=== PATIENT | male | born 1995 | race Two or more races ===

== ENCOUNTER 2019-05-11 09:53 | Emergency (ER) | payer OTHER ==
[~2019-05-11] VITALS: Ht 172.7 cm; Wt 106.1 kg
[~2019-05-11 09:53] MED LIST: IBUP-1953 PO; IBUP100O19 PO
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
--- NOTE | 2019-05-11 10:16 | NUR ---
PT SEEN AND EXAMINED BY .
--- NOTE | 2019-05-11 10:20 | NUR ---
[employer] AT BEDSIDE FOR XRAY.
[2019-05-11] MEDS ORDERED: IBUPROFEN 400 MG TABLET ONE (10:23)
[2019-05-11] MEDS ORDERED: IBUPROFEN 400 MG TABLET PO ONE (10:30)
--- NOTE | 2019-05-11 11:10 | NUR ---
PT IS WHEELED TO CT SCAN VIA [facility].
[2019-05-11 12:03] VITALS: BP 133/72
--- NOTE | 2019-05-11 12:03 | NUR ---
Patient discharged to home in stable condition. Written and verbal after care instructions given. Patient verbalizes understanding of instruction.
== END 2019-05-11 12:04 | disposition home or self-care (01) ==
LOC: ER 09:59
DX: S16.1XXA Strain of muscle, fascia and tendon at neck level, initial encounter (principal); S80.12XA Contusion of left lower leg, initial encounter; S00.81XA Abrasion of other part of head, initial encounter; R51 Headache; F17.200 Nicotine dependence, unspecified, uncomplicated; F12.10 Cannabis abuse, uncomplicated; V49.49XA Driver injured in collision with other motor vehicles in traffic accident, initial encounter; Y93.89 Activity, other specified; Y92.488 Other paved roadways as the place of occurrence of the external cause; Y99.9 Unspecified external cause status
CPT/HCPCS: 70450-TC; 72040-TC; 73552

== ENCOUNTER 2025-01-17 18:10 | Emergency (ER) | payer SELFPAY ==
[~2025-01-17] VITALS: Ht 175.3 cm; Wt 99.8 kg
[~2025-01-17 18:10] MED LIST changes: +IBUP-2383 PO; -IBUP100O19 PO
[2025-01-17 18:40] VITALS: BP 141/86; TEMP 98.5
[2025-01-17 19:50] VITALS: O2SAT 99
== END 2025-01-17 19:54 | disposition home or self-care (01) ==
LOC: ER 18:30
DX: L72.8 Other follicular cysts of the skin and subcutaneous tissue (principal); F12.90 Cannabis use, unspecified, uncomplicated; F17.200 Nicotine dependence, unspecified, uncomplicated